=== PATIENT | female | born 1970 | race Caucasian/White ===

== ENCOUNTER 2019-04-11 09:00 | Outpatient (RCR) | payer OTHER, SELFPAY | END 2019-05-04 10:15 | disposition home or self-care (01) | LOC: PT.CARL 09:00 | PROVIDERS: Visit Provider Nurse Practitioner Family | DX: M54.5 Low back pain (principal) | CPT/HCPCS: 97010; 97012; 97014; 97110; 97116; 97140; 97163; 97164; G0283 ==

== ENCOUNTER → 2019-09-14 14:17 | Outpatient (CLI) | payer OTHER, SELFPAY ==
--- NOTE | 2019-09-14 14:22 | US_ITS ---
PROCEDURE: US EXTREMITY RT LIMITED CLINICAL INDICATION: LOWER RT MASS COMPARISON: No exams were available for comparison FINDINGS: Ultrasound is performed of the palpable abnormality in the right lower leg below the knee. There is a rounded area of increased echogenicity which measures 2.5 x 1.7 cm. Within this center aspect of this area there is a small or heterogeneous area of increased echogenicity which measures 1.7 x 1.2 cm. This has a for whirling pattern. Centrally there is a small anechoic area which could be due to small cystic region. IMPRESSION: Heterogeneous somewhat hyperechoic nodule corresponding to the palpable abnormality with some decreased echogenicity centrally and small cystic area in the most central aspect of the nodule. Overall the nodule measures 2.5 x 1.7 cm. This could be due to a lipoma. This does not appear to represent a cyst or abscess. This has a more solid appearance. There is some concern about the heterogeneous echogenicity centrally. At liposarcoma would be included in the differential diagnosis. Consider MRI without and with contrast for further evaluation. Dictated by: Adrián Christiansen MD 09/15/2019 16:29 Electronically signed by Adrián Christiansen MD in [place] 09/15/2019 16:29
== END ==
PROVIDERS: PCP Nurse Practitioner Family; Visit Provider Orthopaedic Surgery Adult Reconstructive Orthopaedic Surgery
DX: R22.41 Localized swelling, mass and lump, right lower limb (principal)
CPT/HCPCS: 76882

== ENCOUNTER → 2019-09-28 09:37 | Outpatient (CLI) | payer OTHER, SELFPAY ==
--- NOTE | 2019-09-28 09:49 | MR_ITS ---
PROCEDURE: MR LOWER LEG RT WO/W CON CLINICAL INDICATION: Localized swelling, mass and lump, right lower limb Palpable abnormality below the right knee. Knee pain COMPARISON: US EXTREMITY RT LIMITED from 09/14/2019 TECHNIQUE: Routine multiplanar multi echo sequences are performed without and the better gadolinium enhancement. FINDINGS: There is a 13 mm area fat signal intensity in the central aspect of the upper leg. This shows some peripheral increase in T2 signal and also demonstrate some mild diffuse enhancement. This is felt to correspond to the abnormality noted ultrasound. This does appear to correspond to the palpable abnormality. No other significant abnormalities are evident. Images are somewhat limited secondary to patient's body habitus and positioning. There is some pretibial edema noted in the left lower leg. No bony abnormalities are apparent. IMPRESSION: Complex fatty lesion within the subcutaneous tissues of the upper leg anteriorly corresponding to the palpable abnormality demonstrating some enhancement. While this may only represent a lipoma with some underlying inflammation, one cannot exclude the possibility of a liposarcoma. Suggest ultrasound-guided fine needle aspiration core biopsy for further evaluation Dictated by: Adrián Christiansen MD 09/28/2019 12:59 Electronically signed by Adrián Christiansen MD in [place] 10/03/2019 12:51
== END ==
PROVIDERS: PCP Nurse Practitioner Family; Visit Provider Orthopaedic Surgery Adult Reconstructive Orthopaedic Surgery
DX: M79.604 Pain in right leg (principal)
CPT/HCPCS: 73720; A9576

== ENCOUNTER → 2019-12-19 15:55 | Outpatient (CLI) | payer MEDICAID, SELFPAY | PROVIDERS: Visit Provider Urology | DX: N39.0 Urinary tract infection, site not specified (principal) | CPT/HCPCS: 87086; 87088; 87186 ==

== ENCOUNTER → 2020-10-20 09:19 | Outpatient (CLI) | payer MEDICAID, SELFPAY ==
[2020-10-20 10:23] LABS: Basophils % 0.3 % (0.1-2.0); Eosinophils # 0.1 K/mm3 (0.0-0.4); Eosinophils % 1.8 % (0.1-12.0); Hematocrit 43.4 % (37.0-47.0); Hemoglobin 14.2 g/dL (12.2-16.2); Lymphocytes # 1.8 K/mm3 (0.7-4.5); Lymphocytes % 24.7 % (10-50); Mean Corpuscular HGB Conc 32.6 g/dL (31.8-35.4); Mean Corpuscular Hemoglobin 32.7 pg (27.0-31.2); Mean Corpuscular Volume 100.3 fl (81-99); Mean Platelet Volume 7.9 fl (7.4-10.4); Monocytes # 0.5 K/mm3 (0.1-1.0); Monocytes % 6.8 % (1.7-9.3); Neutrophils # 4.8 K/mm3 (1.8-7.8); Neutrophils % 66.5 % (37.0-80.0); Platelet Count 242 K/mm3 (142-424); Red Blood Count 4.33 M/mm3 (4.20-5.40); Red Cell Distribution Width 13.1 % (11.5-17.5); White Blood Count 7.3 K/mm3 (4.8-10.8)
[2020-10-20 11:20] LABS: Chloride 106 mmol/L (98-107); Sodium 140 mmol/L (136-145)
[2020-10-20 11:21] LABS: Potassium 4.6 mmoL/L (3.5-5.1)
[2020-10-20 11:24] LABS: Anion Gap 7.6 mEq/L (5-15); Blood Urea Nitrogen 22 mg/dl (7-17); Calcium 9.4 mg/dl (8.4-10.2); Carbon Dioxide 31 mmol/L (22.0-30.0); Estimated Glomerular Filt Rate 67 ml/min (>60); GFR (African American) 81 ML/MIN (>60); Glucose 95 mg/dl (74-100)
[2020-10-20 11:56] LABS: Coronavirus 19 IgG Antibody Negative (Negative); Coronavirus 19 IgM Antibody Negative (Negative)
== END ==
PROVIDERS: Visit Provider Urology
DX: Z01.818 Encounter for other preprocedural examination (principal); Z03.818 Encounter for observation for suspected exposure to other biological agents ruled out; R32 Unspecified urinary incontinence
CPT/HCPCS: 36415; 80048; 85025; 86328

== ENCOUNTER 2020-10-22 06:48 | Day surgery (SDC) | payer MEDICAID, SELFPAY ==
[2020-10-19 13:12] VITALS: BMI 54.3
[2020-10-22] VITALS (11 sets, daily range): BP systolic 102–134; BP diastolic 43–81; PULSE 58–83; RESP 16–18; TEMP 36.3–43; O2SAT 91–98
[2020-10-22 06:40] LABS: HCG Qualitative, Serum Negative (Negative)
--- NOTE | 2020-10-22 09:19 | P.PN_ITS ---
[facility] Anesthesia Checklist - Patient Identification Patient Identification: Arm Band - Structural Data Admitted From: Home Planned Operative Procedure/s: Transobturator Taping Consent for Planned Operative Procedure(s) Verified: Yes Verified Documents: Surgical Consent, History and Physical - NPO Status Verified Time NPO: 00:00 - Additional verifications Anesthesia Reactions: No Hx Blood Transfusions: No Blood Transfusion Reaction: No - Airway Assessment C-Spine Mobility Assessed: Yes (mp3) TMJ Mobility Assessed: Yes Dentition: Good Dentition - Neurological Assessment Level of Consciousness: Awake, Alert - Anesthesia Plan Anesthesia Risk discussed: Yes Anesthesia Plan: Verified ASA Class: III Anesthesia Type: General [facility] History I have reviewed the patient's past medical history: Yes Medical History: Reports:: Gastroesophageal Reflux Disease(GERD), Hyperlipidemia, Hypertension Denies:: Cancer, Diabetes Mellitus Type 1, Diabetes Mellitus Type 2, Internal Pacemaker, MRSA, Seizures *Have you ever received a pneumonia vaccine?: No *Have you received a flu vaccine this season?: Yes Other Medical History: Reports: Arthritis. Denies: Blood Transfusion Reaction Anesthesia experience/problems:: nac Laterality Cases: Bilateral: Carpal Tunnel Release, Tonsillectomy Other Surgeries: Yes: Appendectomy, Colonoscopy, , Sinus Surgery, Tubal Ligation. No: Pacemaker Amputation: No Fractures: No - *Social History Last grade of school completed: High school graduate Smoking Status: Current every day smoker Tobacco Type: cigarettes # Packs/Day (cigarettes): 1 Alcohol Intake: current Alcohol Intake Frequency:: a few times a week Substance Use Type: denies use *Occupational Status:: employed Housing: house Household Members: none *Travel in the last 8 weeks: None Family Hx:: No significant family history
--- NOTE | 2020-10-22 10:12 | P.PN_ITS ---
[facility] Anesthesia Record Part I Intake, IV Amount: 800 Estimated blood loss (mL): 10 Urine output (mL): 0 Blood Pressure: 102/56 SaO2: 91 Pulse Rate: 76 Respiratory Rate: 16 Temperature: 98.5 F Patient is:: Drowsy, Stable Stable to PACU at:: 10:05
--- NOTE | 2020-10-22 11:26 | HMH.ANESII ---
[facility] Anesthesia Record Part II Discharge Time: 10:32 Destination: Surgical Day Care (OP Surgery) PACU nurse assessment reviewed?: Yes Patient Condition:: Good Anesthesia Complications:: None Swallowing reflex intact?: Yes Cyanosis?: No Blood Pressure: 134/71 Pulse Rate: 75 Temperature: 98.5 F Mental Status: Alert & Oriented Pain level:: 0 Nausea and/or vomitting:: None Intake, IV Amount: 0
--- NOTE | 2020-10-22 16:18 | HMH.OPNOTE ---
Date of procedure: 10/22/20 Pre-op Diagnosis:: Stress urinary incontinence Post-op Diagnosis:: Stress urinary incontinence Procedure performed:: Transobturator tape, cystoscopy Surgeon:: Herminio Tavarez MD BRANDING SPECIALIST:: [place] Anesthesia: [facility] Estimated blood loss (mL): 10 Clinical Note:: 50-year-old white female with mixed urinary incontinence. She has been on Myrbetriq with good control of the urge component and now presents for urologic management of the stress component. Operative findings:: Transobturator tape without complication. Cystoscopy revealed no evidence of bladder or urethral injury. Operative note:: Patient taken to the operating room after informed consent was obtained. She was placed on the operating table in the supine position and general anesthesia administered. Preoperative antibiotics and sequential compression devices placed. Tape was used to retract the inner thighs laterally as patient has a history of morbid obesity. She was then prepped and draped in the standard surgical fashion. 16 [place] Karimi catheter was passed into the bladder and the bladder emptied. Weighted vaginal speculum was placed. A marking pen was used to stephenie the planned incision on the inner thighs at the insertion of the adductor longus on the plane horizontal to the clitoris. Local anesthetic was placed into each incision that was marked. The Karimi catheter was clamped and placed onto the abdomen. An Allis clamp was placed onto the tissue about 1 cm below the urethral meatus. We retracted this tissue anteriorly and local anesthetic was placed submucosally in the anterior vaginal wall. A midline incision was then made in the anterior vaginal wall and the periurethral space was dissected with Metzenbaum scissors. My index finger was then placed into the periurethral space and the bladder neck and endopelvic fascia was bluntly dissected underneath the ischio pubic rami. This was done bilaterally. Our Geogoer Obtryx ll kit was used for the transobturator procedure. The trocar was passed through the right thigh incision and around the ischio pubic rami and guided through the vaginal incision by my finger. One end of the transobturator tape was placed onto the trocar and the tape was brought out through the thigh incision. Inspection of the vaginal fornix was performed and there is no evidence of any vaginal defects. Trocar was then placed into the left thigh incision and around the ischio pubic rami and guided on my finger through the vaginal incision. We then removed the Karimi catheter and passed our cystoscope into the bladder and the 70 degree lens was used to inspect the bladder and urethra. There is no evidence of any bladder or urethral trauma or injury. The cystoscope was then removed and the Karimi catheter was replaced and the bladder drained. Karimi then clamped and placed back onto the abdomen. The other end of the transobturator tape was placed onto the trocar the trocar was brought out through the thigh incision. We then snugged up the transobturator tape to the urethra. A curved clamp was placed between the urethra and the tape and the sleeves were removed and the sleeves were removed snugging the tape up to the curved clamp. Clamp and removed from between the tape and the urethra and the tab on the middle of the tape was cut and removed. Irrigation was performed of the wound and the fascial incision then closed with a running 3-0 chromic. The excess tape was cut off at the thigh level. Thigh incisions were closed using Dermabond glue. Sponge needle and instrument count were correct at the end of the case. The Karimi catheter was placed to drainage and patient transferred to the recovery room in stable condition. Condition: stable Disposition: PACU Specimens:: None Complications:: None
== END 2020-10-22 11:03 | disposition home or self-care (01) ==
LOC: OR 06:51
PROVIDERS: PCP Nurse Practitioner Family; Visit Provider Urology
PROC: (CPT 51992; principal; 2020-10-22 08:30)
DX: R15.9 Full incontinence of feces (principal); R32 Unspecified urinary incontinence; Z79.899 Other long term (current) drug therapy; K21.9 Gastro-esophageal reflux disease without esophagitis; E78.5 Hyperlipidemia, unspecified; I10 Essential (primary) hypertension; M19.90 Unspecified osteoarthritis, unspecified site; Z72.0 Tobacco use; Z87.39 Personal history of other diseases of the musculoskeletal system and connective tissue
CPT/HCPCS: 51992; 84703; 96374; C1771; J1956; J2405

== ENCOUNTER 2021-06-04 15:00 | Outpatient (RCR) | payer MEDICAID, SELFPAY | END 2021-07-02 09:33 | disposition home or self-care (01) | LOC: OT 15:00 | PROVIDERS: PCP Nurse Practitioner Family; Visit Provider Orthopaedic Surgery Adult Reconstructive Orthopaedic Surgery | DX: M75.42 Impingement syndrome of left shoulder (principal) | CPT/HCPCS: 97010; 97014; 97035; 97110; 97140; 97164; 97165; 97530; G0283 ==

== ENCOUNTER → 2021-07-05 07:47 | Outpatient (CLI) | payer MEDICAID, SELFPAY ==
--- NOTE | 2021-07-05 07:49 | MR_ITS ---
PROCEDURE INFORMATION: Exam: MR Left Upper Extremity Joint Without Contrast; Shoulder Exam date and time: 07/05/2021 7:49 AM Age: 50 years old Clinical indication: Left; Patient HX: Lt shoulder pain and weakness x2-3 months, injury. ; Additional info: Left shoulder pain and weakness, R/O rotator cuff tear TECHNIQUE: Imaging protocol: MR of the Left upper extremity without contrast. Exam focused on the shoulder. COMPARISON: No relevant prior study is available. FINDINGS: Limitations: Motion artifact and potentially artifact from the patient contacting the side of the imaging bore. Bones and cartilage: The undersurface of the acromion has a normal curvature, consistent with a type II acromion. There is no acute fracture or dislocation. No aggressive bone lesions are present. There is a subchondral cyst or erosion along the anterior aspect of the humeral head measuring 9 mm (series 7/image 10). Joint spaces: A mild effusion involves the glenohumeral joint. No significant degenerative change involves the acromioclavicular joint. Glenoid labrum: Abnormal signal is present along the long axis of the superior labrum suggesting a type II SLAP tear on this non-arthrographic study. Consider MR arthrography for more definitive assessment if this would alter clinical management. Bursae: A trace amount of fluid is present in the subacromial-subdeltoid bursa. Supraspinatus tendon: Low-grade intrasubstance tearing involves the supraspinatus tendon. There is moderate tendinosis of the remainder of the supraspinatus tendon. Infraspinatus tendon: Mild tendinosis involves the infraspinatus tendon. Subscapularis tendon: Mild tendinosis involves the subscapularis tendon. Teres minor tendon: No tear or significant tendinosis involves the teres minor tendon. Tendon of biceps brachii: Severe tendinosis involves the intra-articular portion of the long head of the biceps tendon. Glenohumeral ligaments: Unremarkable. Muscles: Unremarkable. Soft tissues: Unremarkable. IMPRESSION: 1. Supraspinatus tendon low-grade intrasubstance tearing superimposed on moderate tendinosis. 2. Possible type II SLAP tear, which could be more definitively assessed with MR arthrography if this would alter clinical management. 3. Severe tendinosis of the long head of the biceps tendon. 4. Subchondral cyst or erosion measuring 9 mm along the anterior aspect of the humeral head.
== END ==
PROVIDERS: PCP Nurse Practitioner Family; Visit Provider Orthopaedic Surgery Adult Reconstructive Orthopaedic Surgery
DX: M25.512 Pain in left shoulder (principal); R53.1 Weakness
CPT/HCPCS: 73221

== ENCOUNTER → 2021-11-29 13:15 | Outpatient (CLI) | payer MEDICAID, SELFPAY ==
--- NOTE | 2021-11-29 13:16 | US_ITS ---
FINAL REPORT CLINICAL HISTORY: postmenopausal bleeding FINDINGS: Transvaginal Ultrasound Technique: Transvaginal sonographic images of the pelvis were obtained. Findings: The uterus measures 7.2 x 3.8 x 2.7 cm. The endometrium is mildly thickened at 5 mm in a postmenopausal patient. The right ovary is enlarged at 7.3 cm, heterogeneous with hyperechoic and hypoechoic components. No definite calcifications are seen. The left ovary is unremarkable. There is no significant free fluid. IMPRESSION: Mildly thickened endometrium in a postmenopausal patient. Gynecologic evaluation is recommended. 7.3 cm heterogeneous right ovarian mass. Differentials would include dermoid, endometrioma, or neoplasm. Again gynecologic evaluation is recommended. Reviewed, Interpreted and Dictated by Tacos Barton MD Transcribed by Rohan Shah Authenticated by Tacos Barton MD on 11/29/2021 02:50:56 PM [facility]
== END ==
PROVIDERS: PCP Nurse Practitioner Family; Visit Provider Obstetrics & Gynecology
DX: N95.0 Postmenopausal bleeding (principal)
CPT/HCPCS: 76830

== ENCOUNTER 2024-02-16 08:43 | Outpatient (RCR) | payer MEDICAID, SELFPAY | END 2024-02-16 08:45 | disposition home or self-care (01) | LOC: PT 08:43 | PROVIDERS: Visit Provider Nurse Practitioner Family | DX: I89.0 Lymphedema, not elsewhere classified (principal) | CPT/HCPCS: 97163 ==

== ENCOUNTER 2024-04-28 13:50 | Outpatient (POV) | payer MEDICAID, SELFPAY ==
[2024-04-28 14:04] VITALS: BP 164/85; PULSE 81; RESP 18; O2SAT 95; BMI 56.6
--- NOTE | 2024-04-28 14:34 | A.OFFVIS_ITS ---
HPI Data of Consult Patient: new to practice Consult date: 04/28/24 Requesting Physician: Hannah Zhou APRN Primary Care Provider: Eneida Whittaker Consult Narrative Reason for consult: Bilateral knee pain, leg pain, low back pain History of present illness: Ms. Candelaria is a 53 year old female who presents today as a new patient. She is a referral from Eneida Whittaker's office. Today she rates her pain a 10 out of 10. Patient states that she has pain that is chronic in her low back however what really bothers her is her leg pain and that she does have bilateral knee pain. Patient states this been going on for years and progressively worsened over time. Patient does state that her knees are [id number] and that she has had intra-articular injections that initially really did help however over time became less effective and that she did try gel injections however there did not seem to work well. Patient does believe a lot of her pain is related to her weight and that she does have chronic lymphedema. Patient does state that she was sent for referral to the lymphedema clinic here in [place] and that she is going to them coming up. Patient also states she has a chronic history of fibromyalgia for the last 4 years. Patient states that the pain is constant and worse with increased standing or walking. She describes it as a aching, throbbing sensation and does interfere with the simplest activities. Patient does use a walker to help take some pressure off her legs. Patient denies any prior back injections or surgery. She is prescribed Vyvanse and gabapentin from her PCP. Her Axel has been reviewed and is appropriate. CC: Hannah Zhou APRN [facility] Disclaimer: The information contained in this section may have been updated after the patient was seen, as this information can be updated by other users. Medical History (Updated 04/28/24 @ 14:43 by Hannah Zhou APRN) Carpal tunnel syndrome Barretts esophagus Chronic post-traumatic stress disorder (PTSD) Alcohol abuse Anxiety GERD (gastroesophageal reflux disease) HTN (hypertension) Hypothyroidism Seizures Depression Surgical History (Updated 04/28/24 @ 14:08 by Laila Barry, RN) Hx of total knee arthroplasty H/O section H/O colonoscopy History of tonsillectomy and adenoidectomy S/P laparoscopic sleeve gastrectomy Family History (Updated 04/28/24 @ 14:07 by Laila Barry RN) Other CHF (congestive heart failure) Cancer Diabetes Ischemic heart disease Social History (Updated 04/28/24 @ 14:31 by Laila Barry RN) Smoking Status: Current every day smoker tobacco type: cigarettes packs per day: 1 alcohol intake: never substance use type: denies use current occupational status: unemployed Travel in the last 8 weeks: None household members: none housing: house current occupation: [employer] caffeine: Yes Review of Systems Review of Systems Review of systems:: pertinent systems reviewed and negative unless documented below Review of systems (narrative): Review of Systems: General: No recent weight changes, no fever, no sleep disturbances Respiratory: No cough, no shortness of air, no recurring pulmonary infections Cardiovascular/peripheral vascular: No chest pain, no palpitations, no edema, no shortness of breath Gastrointestinal: No new onset incontinence, normal bowel movements reported Genitourinary: No new onset incontinence Musculoskeletal: Low back pain, bilateral knee pain, bilateral leg pain Psychiatric: [Normal mood/affect] Neurological: [Denies weakness in extremities], [denies balance issues] Meds Home Medications and Allergies Home Medications Medication Instructions Recorded Confirmed Type gabapentin 400 mg capsule 400 mg PO TID Pain 12/19/19 04/28/24 History metoprolol succinate 25 mg 25 mg PO Q12H High blood pressure 12/19/19 04/28/24 History tablet,extended release 24 hr omeprazole 40 mg capsule,delayed 40 mg PO DAILY GERD 12/19/19 04/28/24 History release ranitidine HCl 150 mg capsule 150 mg PO DAILY GERD 12/19/19 04/28/24 History aripiprazole 5 mg tablet 5 mg PO DAILY sleep 10/19/20 04/28/24 History citalopram 40 mg tablet 40 mg PO DAILY Depression 10/19/20 04/28/24 History duloxetine 60 mg capsule,delayed 60 mg PO DAILY Depression 10/19/20 04/28/24 History release hydrochlorothiazide 25 mg tablet 25 mg PO DAILY Edema 10/19/20 04/28/24 History mirabegron 25 mg tablet,extended 25 mg PO DAILY incontinence 10/19/20 04/28/24 History release 24 hr albuterol sulfate 90 mcg/actuation 90 mcg inhalation DIRECTED 11/26/21 04/28/24 History aerosol inhaler (ProAir HFA) Breathing Problems levothyroxine 175 mcg tablet 175 mcg PO DAILY 11/26/21 04/28/24 History (Euthyrox) oxybutynin chloride 10 mg 10 ea PO DAILY BLADDER 11/26/21 04/28/24 History tablet,extended release 24 hr New Prescriptions to Start Prescriptions: Allergies Allergy/AdvReac Type Severity Reaction Status Date / Time penicillin G Allergy Unknown UNKNOWN- Verified 12/10/21 14:49 WHEN A CHILD Objective Narrative: Physical Exam: General: Alert and oriented x3, no acute distress, pleasant and cooperative Lungs: Respirations even and unlabored, symmetrical chest expansion Eyes: PERRL Musculoskeletal: Flexion and extension of lumbar [spine] somewhat guarded secondary to pain, [antalgic gait noted] Neurological: Speech clear, no gross sensory deficit Skin: There is a open seeping area along patient's right lower leg, patient does have a bandage over it however there is drainage noted Additional findings Additional findings: FINDINGS: There is a 13 mm area fat signal intensity in the central aspect of the upper leg. This shows some peripheral increase in T2 signal and also demonstrate some mild diffuse enhancement. This is felt to correspond to the abnormality noted ultrasound. This does appear to correspond to the palpable abnormality. No other significant abnormalities are evident. Images are somewhat limited secondary to patient's body habitus and positioning. There is some pretibial edema noted in the left lower leg. No bony abnormalities are apparent. IMPRESSION: Complex fatty lesion within the subcutaneous tissues of the upper leg anteriorly corresponding to the palpable abnormality demonstrating some enhancement. While this may only represent a lipoma with some underlying inflammation, one cannot exclude the possibility of a liposarcoma. Suggest ultrasound-guided fine needle aspiration core biopsy for further evaluation Dictated by: Adrián Christiansen MD 09/28/2019 12:59 Electronically signed by Adrián Christiansen MD in [place] 10/03/2019 12:51 Assessment and Plan *Assessment and plan (1) Low back pain: Status: Acute Qualifiers: Chronicity: chronic Back pain laterality: bilateral Sciatica presence: without sciatica Qualified Code(s): M54.50 - Low back pain, unspecified; G89.29 - Other chronic pain Category: Medical Code(s): M54.50 - Low back pain, unspecified (2) Lumbar radiculopathy: Status: Acute Category: Medical Code(s): M54.16 - Radiculopathy, lumbar region (3) Chronic acquired lymphedema: Status: Acute Category: Medical Code(s): I89.0 - Lymphedema, not elsewhere classified (4) Bilateral knee pain: Status: Acute Qualifiers: Chronicity: chronic Qualified Code(s): M25.561 - Pain in right knee; M25.562 - Pain in left knee; G89.29 - Other chronic pain Category: Medical Code(s): M25.561 - Pain in right knee; M25.562 - Pain in left knee Plan Patient was counseled that we are primarily in injection therapy clinic and working on means try some injection therapy for her chronic low back pain and see if it does help improve some of her overall leg symptoms. I will also order the patient a compounded cream. Patient is scheduled to see a lymphedema clinic coming up. After discussion with the patient we will wait and see how the cream helps along with her lymphedema clinic consult. Patient was counseled not to apply the cream to any open areas. Patient acknowledges understanding and agrees with this plan of care. Patient will return to clinic in 1 month for reevaluation of symptoms and plan of care. Patient has been instructed to contact the clinic with any concerns before the next appointment. Dr. Hager has reviewed this note and agrees with this plan of care. This note was dictated using voice recognition software and make contain errors or omissions.
== END 2024-04-28 23:59 | disposition home or self-care (01) ==
LOC: SC.PAIN 13:50
PROVIDERS: PCP Nurse Practitioner Family; Visit Provider Nurse Practitioner Family
DX: G89.29 Other chronic pain (principal); M54.50 Low back pain, unspecified; M54.16 Radiculopathy, lumbar region; I89.0 Lymphedema, not elsewhere classified
CPT/HCPCS: 99202; G0463

== ENCOUNTER 2024-06-14 08:00 | Outpatient (RCR) | payer MEDICAID, SELFPAY | END 2024-06-14 08:05 | disposition home or self-care (01) | LOC: PT 08:00 | PROVIDERS: Visit Provider Nurse Practitioner Family | DX: I89.0 Lymphedema, not elsewhere classified (principal) | CPT/HCPCS: 97140; 97163; 97164; 97760 ==

== ENCOUNTER 2024-08-05 09:00 | Outpatient (RCR) | payer MEDICAID, SELFPAY | END 2024-08-05 23:59 | disposition home or self-care (01) | LOC: PT 09:00 | PROVIDERS: Visit Provider Nurse Practitioner Family | DX: R60.9 Edema, unspecified (principal); S81.802S Unspecified open wound, left lower leg, sequela; L53.9 Erythematous condition, unspecified; L85.9 Epidermal thickening, unspecified | CPT/HCPCS: 97140; 97163; 97597; 97598 ==

== ENCOUNTER 2025-04-26 08:00 | Outpatient (RCR) | payer MEDICARE, SELFPAY | END 2025-04-26 23:59 | disposition home or self-care (01) | LOC: PT 08:00 | PROVIDERS: PCP Nurse Practitioner Family; Visit Provider Nurse Practitioner Family | DX: I89.0 Lymphedema, not elsewhere classified (principal) | CPT/HCPCS: 97110; 97140; 97163 ==

== ENCOUNTER 2025-05-11 08:00 | Outpatient (RCR) | payer MEDICARE, SELFPAY | END 2025-05-11 23:59 | disposition home or self-care (01) | LOC: PT 08:00 | PROVIDERS: PCP Nurse Practitioner Family; Visit Provider Nurse Practitioner Family | DX: I89.0 Lymphedema, not elsewhere classified (principal) | CPT/HCPCS: 97140 ==

== ENCOUNTER 2025-10-07 19:45 | Emergency (ER) | payer MEDICARE, SELFPAY ==
--- OUTSIDE RECORDS SUMMARY | 2025-09-25 06:00 | XMS_ITS | Continuity of Care Document ---
Author Organization [facility] Veruta mSeller Phone Care Team Providers Care Combined Rail Operator Name Role Phone CJ MAYO Admitting CJ MAYO Primary Attending CJ MAYO Primary Care CJ MAYO Unavailable ALLERGIES AND ADVERSE REACTIONS ALLERGIES AND ADVERSE REACTIONS Code System Allergy Substance Adverse Reaction Date Reaction (Severity) Comment Status Reported By Updated [place] [id number] SNOMED CT PENICILLINS Adverse reaction to substance Not Specified active [id number] on January 02, 2024 4:17:49 AM [facility] [id number] SNOMED CT PENICILLINS Adverse reaction to substance Not Specified active [id number] on January 02, 2024 4:17:49 AM [facility] FAMILY HISTORY RELATION: Father Status: Cause of : Unknown Age at : Unknown SNOMED-CT Diagnosis Age At Onset Information not available RELATION: Mother Status: Cause of : Unknown Age at : Unknown SNOMED-CT Diagnosis Age At Onset Information not available RELATION: Sister Status: Cause of : Unknown Age at : Unknown SNOMED-CT Diagnosis Age At Onset [id number] Malignant tumor of lung MEDICATIONS HOME MEDICATIONS Status RXNORM NDC Medication Dose Route Frequency Dates Comments Reported By Updated By Drug Treatment Unknown DISCHARGE MEDICATIONS Status RXNORM NDC Medication Dose Route Frequency Dates Dis pense Data Comments Physician Updated By No Discharge Medication Info rmation Available INPATIENT MEDICATIONS Status RXNORM NDC Medication Dose Route Frequency Rat e Quantity Dates Indication Dispense Data Comments Physician Updated By No Inpatient Medication Info rmation Available SOCIAL HISTORY SOCIAL HISTORY - Smoking Status SNOMED-CT Social History Element Description Effective Dates Offered Cessation Comment Updated By [id number] Historical Tobacco smoking status Never Smoked [id number] on January 02, 2024 2:02:24 PM [facility] [id number] Historical Tobacco smoking status Current Every Day Smoker Yes [id number] on April 28, 2023 7:57:25 PM [facility] SOCIAL HISTORY - Gender Sex: Female SOCIAL HISTORY - Status : status i nformation is not available Intention in Next Year: intention information is not available SOCIAL HISTORY - Assessments Code System Description Status Date Value of Assessment Updated By Comment Assessment Information is no t available SOCIAL HISTORY - [place] Affiliation [place] information is not av ailable SOCIAL HISTORY - Legal Sex Legal Sex information is not available SOCIAL HISTORY - Sexual Behavior Sexual Orientation Gender Identity SNOMED-CT Description SNO MED -CT Description Activity Level No of Partners Partner Type UpdatedBy Information is not available SOCIAL HISTORY - Occupation Occupation information is no t available HEALTH CONCERNS Problems Concern Status Health Concern problem infor mation not available. Smoking Status Status Years Used Consumed packs p er day Health Concern smoking histo ry information not available. Family History Concern Status Health Concern family histor y information not available. ENCOUNTERS ENCOUNTER INFORMATION Reason for Visit SCREENING MAMMOGRAM Admission September 22, 2025 1:27:[address] [address] Discharge September 23, 2025 1:27:00 AM [facility] DISCHARGED TO HOME OR SELF CARE ENCOUNTER DIAGNOSES Notes information is not linda ilable. Code System Diagnosis Onset Date Diagnosis information is not available. ABSTRACT DIAGNOSES Code System Diagnosis Updated By Abatement Date Z12.31 ICD10 ENCOUNTER FOR SC REENING MAMMOGRAM FOR MALIGNANT NEOPLASM OF BREAST [id number] on September 11, 2025 5:31:46 PM [facility] Z12.31 ICD10 ENCOUNTER FOR SC REENING MAMMOGRAM FOR MALIGNANT NEOPLASM OF BREAST [id number] on September 25, 2025 10:59:49 AM [facility] CARE TEAM Care Combined Rail Operator Role CJ MAYO Admitting CJ MAYO Primary Attending CJ MAYO Primary Care CJ MAYO Referring CARE TEAM CARE food service supervisor Role on Team Location Telecom Status Start Date End Desmond e Updated By GAEL PAZ PCP normal September 11, 2025 5:31:46 PM [facility] September 23, 2025 1:27:00 AM [facility] [id number] on September 11, 2025 5:31:46 PM [facility] GAEL PAZ Referring normal September 11, 2025 5:31:46 PM [facility] September 23, 2025 1:27:00 AM [facility] [id number] on September 11, 2025 5:31:46 PM [facility] GAEL PAZ Attending normal September 11, 2025 5:31:46 PM [facility] September 23, 2025 1:27:00 AM [facility] [id number] on September 11, 2025 5:31:46 PM [facility] GAEL PAZ Admitting normal September 11, 2025 5:31:46 PM [facility] September 23, 2025 1:27:00 AM [facility] [id number] on September 11, 2025 5:31:46 PM [facility]
[2025-10-07] VITALS (8 sets, daily range): BP systolic 156–183; BP diastolic 90–102; PULSE 74–83; RESP 14–24; TEMP 37; O2SAT 95–98; BMI 57.8
--- OUTSIDE RECORDS SUMMARY | 2025-10-07 00:21 | XMS_ITS | Continuity of Care Document ---
Author Organization [facility] Phone Care Team Providers Care Technical Support Professional Name Role Phone MARCIA ADHIKARI Admitting MARCIA ADHIKARI Unavailable MARCIA ADHIKARI Primary Attending CJ MAYO Primary Care ALLERGIES AND ADVERSE REACTIONS ALLERGIES AND ADVERSE REACTIONS Code System Allergy Substance Adverse Reaction Date Reaction (Severity) Comment Status Reported By Updated By [id number] RXNorm Penicillin Adverse reaction to substance shaking and fainting active Patient [id number] on July 16, 2022 5:28:23 PM [facility] FAMILY HISTORY RELATION: Father Status: Cause of : Unknown Age at : 20's SNOMED-CT Diagnosis Age At Onset Information not available RELATION: Mother Status: LIVING SNOMED-CT Diagnosis Age At Onset [id number] Heart disease RELATION: Mother Status: Cause of : Primary malignant neoplasm of lung Age at : Unknown SNOMED-CT Diagnosis Age At Onset Information not available MEDICATIONS HOME MEDICATIONS Status RXNORM NDC Medication [...] Effective Dates Offered Cessation Comment Updated By [id number] Historical Tobacco smoking status Never Smoked [id number] on January 21, 2024 2:19:43 PM [facility] [id number] Historical Tobacco smoking status Former Smoker [id number] on January 04, 2024 9:07:33 PM [facility] [id number] Historical Tobacco smoking status Current Every Day Smoker [id number] on September 17, 2020 2:59:37 PM [facility] SOCIAL HISTORY - Gender Sex: Female SOCIAL HISTORY - Status : status i nformation is not available Intention in Next Year: intention information is not available SOCIAL HISTORY - Assessments Code System Description Status Date Value of Assessment Updated By Comment Assessment Information is no t available SOCIAL HISTORY - [place] Affiliation [place] information is not av ailable SOCIAL HISTORY - Legal Sex Legal Sex : Female (finding) SOCIAL HISTORY - Sexual Behavior Sexual Orientation Gender Identity SNOMED-CT Description SNO MED -CT Description Activity Level No of Partners Partner Type UpdatedBy Information is not available SOCIAL HISTORY - Occupation Occupation information is no t available ENCOUNTERS ENCOUNTER INFORMATION Reason for Visit OV Admission October 06, 2025 2:17:[address] [address] Discharge October 06, 2025 2:17:00 PM [facility] DISCHARGED TO HOME OR SELF CARE ENCOUNTER DIAGNOSES Notes information is not linda ilable. Code System Diagnosis Onset Date Diagnosis information is not available. ABSTRACT DIAGNOSES Code System Diagnosis Updated By Abatement Date Abstract Diagnosis informati on is not available. CARE TEAM Care Technical Support Professional Role MARCIA ADHIKARI Admitting MARCIA ADHIKARI Referring MARCIA ADHIKARI Primary Attending CJ MAYO Primary Care CARE TEAM CARE vp care management Role on Team Location Telecom Status Start Date End Desmond e Updated By GAEL CORONA PCP [address] [place], [address] normal October 06, 2025 5:00:00 AM [facility] October 06, 2025 2:17:00 PM [facility] [id number] on October 06, 2025 2:18:18 PM [facility] ONOFRE SAMUELOD K PHY Referring [address] [place] [address], [id number] normal October 06, 2025 5:00:00 AM [facility] October 06, 2025 2:17:00 PM [facility] [id number] on October 06, 2025 2:18:18 PM [facility] ONOFRE SAMUELOD K PHY Attending [address] [place] [address], [address] normal October 06, 2025 5:00:00 AM [facility] October 06, 2025 2:17:00 PM [facility] [id number] on October 06, 2025 2:18:18 PM [facility] ONOFRE Gregory PHY Admitting [address] [address], [place], [address] normal October 06, 2025 5:00:00 AM [facility] October 06, 2025 2:17:00 PM [facility] [id number] on October 06, 2025 2:18:18 PM [facility] INSURANCE PROVIDERS INSURANCE PROVIDER Coverage Status - Effective Date Coverage Type Payor Plan Order Relationship To Subscriber Insurance Plan No Insurance Plan 2024-11-02 PRIMARY 18 [phone] [facility]
--- OUTSIDE RECORDS SUMMARY | 2025-10-07 19:51 | XMS_ITS | Clinical Summary ---
Author Organization [facility] Address [address] [place] [address] Care Team Providers Care Wagon Washer Name Role Phone Eneida Whittaker JEY Primary Care Provider [phone] Allergies Active Allergy Reactions Criticality Noted Date Comments Penicillins Other (See Comments) 01/08/2023 Patient is unknown of reaction to medication. Medications Ventolin HFA 108 (90 Base) MCG/ACT inhaler Inhale See Admin Instructions . Inhale 2 puffs by mouth every 4 to 6 hours as needed 11/22/2022 Active ARIPiprazole (ABILIFY) 10 MG tablet Take 1 tablet by mouth Daily. 01/04/2023 Active citalopram (CeleXA) 40 MG tablet Take 1 tablet by mouth Daily. 01/04/2023 Active DULoxetine (CYMBALTA) 60 MG capsule Take 1 capsule by mouth Daily. 12/17/2022 Active Enoxaparin Sodium (LOVENOX) 60 MG/0.6ML solution prefilled syringe syringe 10/09/2022 Act sunil gabapentin (NEURONTIN) 400 MG capsule Take 1 capsule by mouth 3 (Three) Times a Day. 12/11/2022 Active hydroCHLOROthia zide (HYDRODIURIL) 25 MG tablet Take 1 tablet by mouth Daily. 01/02/2023 Active levothyroxine (SYNTHROID, LEVOTHROID) 175 MCG tablet Take 1 tablet by mouth Daily. 12/19/2022 Active metoprolol tartrate (LOPRESSOR) 25 MG tablet Take 1 tablet by mouth 2 (Two) Times a Day. 01/04/2023 Active omeprazole (priLOSEC) 40 MG capsule Take 1 capsule by mouth 2 (Two) Times a Day. 12/24/2022 Active Active Problems Problem Noted Date Diagnosed Date Morbid obesity with BMI of 50.0-59.9, adult 07/2023 Assessment & Plan (01/08/2023 1:07 PM EST): She has lost 27 pounds since her last visit. And she is praised for her weight loss today. She reports she is continuing on her journey of weight loss. She continues to follow-up with bariatrics. KRISTINA (obstructive sleep apnea) 01/08/2023 Assessment & Plan (01/08/2023 1:05 PM EST): She has a known history of obstructive sleep apnea. Her baseline AHI is 6 that is mild. But her baseline in rem sleep is 30 and this is severe. She is currently on BiPAP therapy. Her download is reviewed with good control and good compliance. She is benefiting from PAP therapy and we plan to continue PAP therapy. Supply order to the DME of her choice. She is encouraged to increase her use of her BiPAP and sleep more than 7 hours. We will follow-up in 6 months for further evaluation. Family History Medical History Relation Name Comments Lung cancer Sister Relation Name Status Comments Brother Alive Father (Age 25) Mother (Age 65) Sister (Age 50) Social History Tobacco Use Types Packs/Day Years Used Date Smoking Tobacco: Former Cigarettes 1 33 0 05/20/1987 - 05/20/2020 Tobacco Cessation:Counseling Given: Not Answered Alcohol Use Standard Drinks/Week Comments Not Currently 0 (1 standard drink = 0.6 oz pur e alcohol) Abuse Screen Answer Date Recorded Unsafe at Home or Work/School Not on file Feels Threatened by Someone? Not on file Does Anyone Keep You from Co ntacting Others or Doint Things Outside the Home? Not on file 08/14/2023 Physical Sign of Abuse Present Not on file 1 Housing Stability Answer Date Recorded Current Living Arrangements Not on file 08/02 Potentially Unsafe Housing Conditions Not on timbo e 08/14/2023 Family and Community Support Answer Desmond e Recorded Help with Day-to-Day Activities Not on file 08/14/2023 Lonely or Isolated Not on file 08/14/2023 Employment Answer Date Recorded Do you want help finding or keeping work or a francis b? Not on file 08/14/2023 Disabilities Answer Date Recorded Concentrating, Remembering, or Making Decisions Difficulty Not on file 08/14/2023 Doing Errands Independently Difficulty Not on fi le 08/14/2023 Education Answer Date Recorded Help with school or training? Not on file Preferred Language Not on file 08/14/2023 Comments Unknown Sex and Gender Information Value Date Recorded Sex Assigned at Not on file Legal Sex Female 2:18 PM EST Gender Identity Not on file Sexual Orientation Not on file Last Filed Vital Signs Vital Sign Reading Time Taken Comments Blood Pressure 128/72 01/08/2023 12:04 PM EST Pulse 90 01/08/2023 12:04 PM EST Temperature - - Respiratory Rate - - Oxygen Saturation 93% 01/08/2023 12:04 PM EST Inhaled Oxygen Concentration - - Weight 144 kg (317 lb) 01/08/2023 12:04 PM EST Height 167.6 cm (5' 6 ) 01/08/2023 12:04 PM EST Body Mass Index 51.17 01/08/2023 12:04 PM EST Plan of Treatment Health Maintenance Due Date Last Done Comments Annual Gynecologic Pelvic and Breast Exam 1972 TDAP/TD VACCINES (1 - Tdap) 1991 MAMMOGRAM 2012 COLOGUARD 2017 COLON CANCER SCREENING 5 YEAR SIGMOIDOSCOPY 2017 COLONOSCOPY 2017 COLORECTAL CANCER SCREENING 2017 CT COLONOGRAPHY 2017 FECAL OCCULT BLOOD TEST 2017 FIT Testing (1 year) 2017 Pneumococcal Vaccine 50+ (1 of 1 - PCV) 2022 ZOSTER VACCINE (1 of 2) 2022 ANNUAL PHYSICAL 01/06/2023 HEPATITIS C SCREENING 01/06/2023 INFLUENZA VACCINE 06/02/2025 Insurance [employer] MEDICAID [place] Care Teams Wagon Washer Relationship Specialty Start Date End Date Eneida Whittaker APRN [address] [place] [address] PCP - General Nurse Practitioner 01/08/23
--- OUTSIDE RECORDS SUMMARY | 2025-10-07 19:51 | XMS_ITS | Encounter Summary ---
Author Organization Healthcare Address [address] [place] [address] Care Team Providers Care Communications Systems Engineer Name Role Phone Eneida Whittaker CITY DISPATCH SUPERVISOR Primary Care Provider [phone] Encounter Details Date Type Department Care Team (Late st Contact Info) Description 05/08/2023 Community [facility] Community Practice [address] [place] [address] Eneida Whittaker APRN [address] [place], [place] [id number] Cellulitis of left lower extremity (Primary Dx) Social History Tobacco Use Types Packs/Day Years Used Date Smoking Tobacco: Passive Smo ke Exposure - Never Smoker Comments Unknown Sex and Gender Information Value Date Recorded Sex Assigned at Female 05/08/2023 2:14 PM EDT Legal Sex Female 8:03 PM EDT Gender Identity Female 05/08/2023 2:14 PM EDT Sexual Orientation Straight 05/20/2023 3: 39 PM EDT documented as of this encounter Plan of Treatment Not on file documented as of this encounter Visit Diagnoses Diagnosis Cellulitis of left lower extremity- Primary documented in this encounter Additional Health Concerns Infection Onset Date Last Indicated Resolved Time C. difficile Rule-Out 05/19/2023 05/19/20232022 1:29 PM EDT Gastrointestinal Rule-Out 05/19/2023 05/19/2023 2:05 PM EDT C. difficile 05/19/2023 05/19/2023 documented as of this encounter Care Teams Communications Systems Engineer Relationship Specialty Start Date End Date Eneida Whittaker APRN [address] [place] [address] PCP - General 03/15/21 documented as of this encounter
--- OUTSIDE RECORDS SUMMARY | 2025-10-07 19:51 | XMS_ITS | Encounter Summary ---
Author Organization [facility] Address [address] [place] [address] Care Team Providers Care Patent Leather Sorter Name Role Phone Eneida Whittaker CATTLE TRADER Primary Care Provider [phone] Encounter Details Date Type Department Care Team (Late st Contact Info) Description 06/29/2023 [facility] Community [facility] [address] [place] [address] Eneida Whittaker, CATTLE TRADER [address] [place], [place] [id number] Laceration without foreign body, left foot, sequela (Primary Dx) Social History Tobacco Use Types Packs/Day Years Used Date Smoking Tobacco: Every Day Cigarettes Passive Smoke Exposure: Yes PHQ-2 Answer Date Recorded Patient Health Questionnaire-2 Score 0 07/01/2023 CAGE ASSESSMENT Answer Date Recorded Cage unable to access Not on file 05/18/2023 Cage max number of drinks Not on file 2022 Cage Beverages a week Not on file 05/18/2023 Have you ever felt you should CUT down on your d rinking? 0 05/18/2023 Have you been ANNOYED by people criticizing your drinking? 0 05/18/2023 Have you felt GUILTY about your drinking? 0 05/18/2023 Have you had a drink first t rodrick in the morning (EYE-BLUE LINE HANGER) to steady your nerves or to get rid of a hangover? 0 05/18/2023 CAGE Questionnaire Score 0 023 Comments No Sex and Gender Information Value Date Recorded Sex Assigned at Female 05/08/2023 2:14 PM EDT Legal Sex Female 8:03 PM EDT Gender Identity Female 05/08/2023 2:14 PM EDT Sexual Orientation Straight 05/20/2023 3: 39 PM EDT documented as of this encounter Functional Status * Over the past 2 weeks, how often have you been bothered by any of the following problems? Question Answer Date of Assessment Author Little interest or pleasure in doing things Not at all 07/01/2023 9:02 AM EDT Laya Gillespie RN Feeling down, depressed, or hopeless Not at all 07/01/2023 9:02 AM EDT Laya Gillespie RN Patient Health Questionnaire -2 Score 0 07/01/2023 9:02 AM EDT Laya Gillespie RN documented as of this encounter Plan of Treatment Not on file documented as of this encounter Visit Diagnoses Diagnosis Laceration without foreign body, left foot, sequela- Primary documented in this encounter Additional Health Concerns Infection Onset Date Last Indicated Resolved Time C. difficile 05/19/2023 05/19/2023 documented as of this encounter Care Teams Patent Leather Sorter Relationship Specialty Start Date End Date Eneida Whittaker, CATTLE TRADER [address] [place] [address] PCP - General 03/15/21 documented as of this encounter
--- OUTSIDE RECORDS SUMMARY | 2025-10-07 19:52 | XMS_ITS | Clinical Summary ---
Author Organization [facility] Address [address] [place] [address] Care Team Providers Care Student Records Specialist Name Role Phone Eneida Whittaker JEY Primary Care Provider [phone] Allergies Active Allergy Reactions Criticality Noted Date Comments Penicillins Rash Low 05/17/2023 Medications albuterol 108 (90 Base) MCG/ACT inhaler Inhale 2 puffs every 4 (four) hours if needed for wheezing or shortness of breath. Active ARIPiprazole (Abilify) 10 MG tablet Take 1 tablet (10 mg) by mouth 1 (one) time each day. Active metoprolol tartrate (Lopressor) 25 MG tablet Take 1 tablet (25 mg) by mouth 2 (two) times a day. Active DULoxetine (Cymbalta) [address] capsule Take 1 capsule (60 mg) by mouth 1 (one) time each day. Do not crush or chew. Active levothyroxine (Synthroid, Levoxyl) 200 MCG tablet Take 1 tablet (200 mcg) by mouth 1 (one) time each day before breakfast. Active hydroCHLOROthia zide (HYDRODiuril) 25 MG tablet Take 1 tablet (25 mg) by mouth 1 (one) time each day. Active citalopram (CeleXA) 40 MG tablet Take 1 tablet (40 mg) by mouth 1 (one) time each day. Active omeprazole (PriLOSEC) [address] capsule Take 1 capsule (40 mg) by mouth 1 (one) time each day. Do not crush or chew. Active biotin 5 MG capsule Take 1 capsule (5 mg) by mouth 1 (one) time each day. Active gabapentin (Neurontin) 400 MG capsule Take 1 capsule (400 mg) by mouth 3 (three) times a day. Active buPROPion XL (Wellbutrin XL) 300 MG 24 hr tablet 5 Active Active Problems Problem Noted Date Diagnosed Date Wound of left leg 07/01/2023 Tobacco abuse disorder 07/01/2023 HTN (hypertension) 05/18/2023 Lymphedema 05/18/2023 GERD (gastroesophageal reflux disease) Fibromyalgia 05/18/2023 Hypothyroidism 05/18/2023 Morbid obesity with BMI of 50.0-59.9, adult 05/02 Left leg cellulitis 05/17/2023 KRISTINA (obstructive sleep apnea) 01/08/2023 Overview (07/01/2023): Last Assessment & Plan: She has a known history of obstructive [...] follow-up in 6 months for further evaluation. Resolved Problems Problem Noted Date Diagnosed Date Resolved Date Cellulitis 05/17/2023 07/23/2025 Morbid obesity 06/20/2015 07/01/2023 07/01/2023 Encounters Date Type Department Care Team Description 08/07/2025 Telephone [facility] [address] [facility] [address]th Floor [address] [place] [id number] Ever Gray MD [facility] Clinical Concern/Question from Last 3 Months Family History Medical History Relation Name Comments Lung cancer Mother Family history of lung cancer Stomach cancer Mother FH: stomach c ancer Stroke Other 1 Coronary artery disease Other 2 Diabetes Other 3 Hypertension Other 4 Lung cancer Sister Family history of lung cancer Relation Name Status Comments Mother Other 1 Other 2 Other 3 Other 4 Sister Social History Tobacco Use Types Packs/Day Years Used Date Smoking Tobacco: Former Cigarettes 1 35 1 - 08/29/2023 Passive Smoke Exposure: Past Smokeless Tobacco: Never Tobacco Cessation:Counseling Given: No Comments:Pt is interested in quieting tried the nicotine patches. 09/02/2023 Pt reports she has stopped smoking 4 days ago. Alcohol Use Standard Drinks/Week Comments Not Currently 0 (1 standard drink = 0.6 oz pur e alcohol) PHQ-2 Answer Date Recorded Patient Health Questionnaire-2 Score 0 07/29/2023 CAGE ASSESSMENT Answer Date Recorded Cage unable [...] drink first t rodrick in the morning (EYE-PHARMACEUTICAL SALES REPRESENTATIVE) to steady your nerves or to get rid of a hangover? 0 05/18/2023 CAGE Questionnaire Score 0 023 PHQ-2A Answer Date Recorded Patient Health Questionnaire-2 Score 0 07/29/2023 Comments No Sex and Gender Information Value Date Recorded Sex Assigned at Female 05/08/2023 2:14 PM EDT Legal Sex Female 8:03 PM EDT Gender Identity Female 05/08/2023 2:14 PM EDT Sexual Orientation Straight 05/20/2023 3: 39 PM EDT Last Filed Vital Signs Vital Sign Reading Time Taken Comments Blood Pressure 117/69 11/04/2023 8:59 AM EST Pulse 66 11/04/2023 8:59 AM EST Temperature 36.3 C (97.4 F) 11/04/2023 8:59 AM EST Respiratory Rate 16 11/04/2023 8:59 AM EST Oxygen Saturation 94% 05/22/2023 8:34 AM EDT Inhaled Oxygen Concentration - - Weight 142 kg (314 lb) 11/04/2023 8:59 AM EST Height 162.5 cm (5' 3.98 ) 11/04/2023 8:59 AM ES T Body Mass Index 53.93 11/04/2023 8:59 AM EST Plan of Treatment Health Maintenance Due Date Last Done Comments [facility]-Medicare Annual Wellness (AWV) 1970 [facility]-Infant/Child/Adol SDOH Screenings 1972 [facility]- SDOH Screenings 1990 [facility]-Adult SDOH Screenings 1990 [facility]-DTaP,Tdap,and Td Vaccines (1 - Tdap) 1991 [facility]-Hepatitis B Vaccines (1 of 3 - 19+ 3-dose series) 1991 [facility]-Pap Smear 12/25/1997 12/25/1994 [facility]-Cervical Cancer Screening 2002 [facility]-HPV/Cotest 2002 12/25/1994 CT Colonography 2017 Colonoscopy 2017 FIT-DNA 2017 FIT 2017 FOBT 2017 Sigmoidoscopy 2017 [facility]-Colorectal Cancer Screening 2017 EDF-KVGYV-70 Vaccine (3 - Pfizer risk series) 08/27/2021 07/30/2021, 07/02/2021 Lung Cancer Screening Shared Decision Making 2022 [facility]-Breast Cancer Screening 2022 [facility]-Lung Cancer Screening 2022 [facility]-Pneumococcal Vaccine: 50+ Years (1 of 1 - PCV) 2022 [facility]-Zoster Vaccines (1 of 2) 2022 [facility]-Depression Screening 07/29/2024 07/29/2023 [facility]-Influenza Vaccine (#1) 07/03/202508/11, 09/26/2022, 10/04/2021, Additional history exists [facility]-HIV Screening Completed 05/17/2023 [facility]-Hepatitis C Screening Completed 05/17/2023 [facility]-Obesity Intervention Completed 024, 09/30/2023, 09/02/2023, Additional history exists HPV Vaccines Aged Out No longer eligi ble based on patient's age to complete this topic [facility]-HIB Vaccines Aged Out No longer e ligible based on patient's age to complete this topic [facility]-Hepatitis A Vaccines Aged Out No longer eligible based on patient's age to complete this topic [facility]-IPV Vaccines Aged Out No longer e ligible based on patient's age to complete this topic [facility]-Rotavirus Vaccines Aged Out No lo nger eligible based on patient's age to complete this topic Procedures Procedure Name Priority Date/Time Associated Diagnosis Comments HEPATITIS C ANTIBODY - ED W/REFLEX TO HCV QUANT PCR STAT 05/17/2023 8:31 PM EDT HIV 1/2 ANTIBODY/ANTIGEN SCREEN WITH REFLEX TO HIV I/II DIFFERENTIATION STAT 05/17/2023 8:31 PM EDT CYTO DATA CONVERSION Routine 12/25/1994 12:00 AM EST from Last 3 Months or Most Recently Relevant to Health Maintenance Results * HIV 1 & 2 Antibody/Antigen Screen (05/17/2023 8:31 PM EDT) Pathologist [facility] HIV 1 & 2 Antibody/Antigen Screen Non Reactive Non Reactive 05/17/2023 9:33 PM EDT [facility] Comment:Screening for HIV 1 & 2 antibodies, and P24 antigen is NONREACTIVE. No confirmatory testing is required. Blood Venous blood specimen / Unknown Venipuncture / Unknown 05/17/2023 8:31 PM EDT 05/17/2023 8:57 PM EDT Steve Cabello MD LAB BLOOD ORDERABLES Final Result Performing Organization Address [facility] Co de Phone Number [facility] [address] [place] [address] * Hepatitis C Antibody - ED (05/17/2023 8:31 PM EDT) Hepatitis C Antibody Negative Negative 05/17/2023 9:35 PM EDT [facility] Blood Venous blood specimen / Unknown Venipuncture / Unknown 05/17/2023 8:31 PM EDT 05/17/2023 8:57 PM EDT Steve Cabello MD LAB BLOOD ORDERABLES Final Result Performing Organization Address [facility] Co de Phone Number [facility] [address] [place] [address] * Cytology (12/25/1994 12:00 AM EST) 12/25/1994 12/26/1994 Narrative SUNQUEST - 12/31/1994 12:00 AM EST [facility] MR #: [id number] [facility] [address] [place], [place] [address] 1970 (Age: 24) FW Collect Date: 12/25/1994 00:00 Receipt Date: 12/26/1994 00:00 Page 1 DEPARTMENT OF PATHOLOGY AND LABORATORY MEDICINE CYTOPATHOLOGY REPORT Email: [phone] * Converted Case * This report may not match the original report format ATTENDING MD/Practitioner: Skylar Frost MD Service: ACOUSTICAL TILE DRILL PRESS OPERATOR Location: Reported: 12/31/1994 00:00 Collected: 12/25/1994 00:00 INTERPRETATION CERVICAL SCRAPE/ENDOCERVICAL BRUSH WITHIN NORMAL LIMITS. SATISFACTORY FOR INTERPRETATION. Electronically Signed Out KATY Espinoza (ASCP) Lynn García MD Cervical cytology is a screening test primarily for squamous cancers and precursors and has associated false negative and positive results. New technologies such as liquid based sampling may decrease but will not eliminate all false negative results. Regular screening and follow-up of unexplained clinical signs and symptoms are recommended to minimize false negative results. Please see the ASCCP website (www.asccp.org) for followup recommendations. If HPV testing was requested, correlation with the results is suggested (please call Microbiology at [phone] for results). CLINICAL INFORMATION: Menstrual History: {Not Provided} Date of Last Menstrual Period: {Not Provided} SPECIMEN DESCRIPTION: A: CERVICAL/VAGINAL SMEAR, PAP ICD: F: {Not Entered} SNOMED CODES: 1; [id number] In cases where a pathologist has signed out the report, the service has been rendered in part by a resident. The signing pathologist has performed and is responsible for the reported pathologic evaluation. us Historical Provider LAB PATHOLOGY ORDERABLES Fin al Result SUNQUEST from Last 3 Months or Most Recently Relevant to Health Maintenance Additional Health Concerns Infection Onset Date Last Indicated C. difficile 05/19/2023 05/19/2023 Insurance [facility] MEDIC[facility] Advance Directives * Full Code (Latest Code Status on File) Date Activated Date Inactivated Comments 05/17/2023 11:57 PM 05/22/2023 3:16 PM Question Answer Comments Patient has decision-making capacity? Yes Care Teams Student Records Specialist Relationship Specialty Start Date End Date Eneida Whittaker APRN [address] [place], [place] [id number] PCP - General 03/15/21
--- OUTSIDE RECORDS SUMMARY | 2025-10-07 19:52 | XMS_ITS | Encounter Summary ---
Author Organization Healthcare Address [address] [place] [address] Care Team Providers Care Vault Manager Name Role Phone Eneida Whittaker GARMENT FORM ASSEMBLER Primary Care Provider [phone] Reason for Visit * Reason Onset Date Comments [facility] Clinical Concern/Question 08/07/2025 Encounter Details Date Type Department Care Team (Late st Contact Info) Description 08/07/2025 Telephone [facility] [address] [facility] [address]th Floor [address] [place] [address] Ever Gray MD [address] [facility] [address] [place] [address] [facility] Clinical Concern/Question Social History Tobacco Use Types Packs/Day Years Used Date Smoking Tobacco: Former Cigarettes 1 35 1 - 08/29/2023 Passive Smoke Exposure: Past Smokeless Tobacco: Never Comments:Pt is interested in quieting tried the [...] drink first t rodrick in the morning (EYE-TOBACCO STEMMER MACHINE) to steady your nerves or to get [...] PM EDT documented as of this encounter Miscellaneous Notes * Telephone Encounter - Yin Guillaume RN - 08/10/2025 2:07 PM EDT Sent patient message via [employer] recommending compounding pharmacy or online template. Offered appointment if patient would like to be seen. * Telephone Encounter - Mary Gallardo - 08/07/2025 9:50 AM EDT Clinical Concern/Question Reason for Call: Patient is calling to see if she can get her measurements so she can reorder her compression sleeves. Please call patient back with info or email it to her at [email or web address]. thank you Best contact number: [phone] (home) Optimal time of day to reach caller: ANYTIME Additional comments/information from caller: None Note: Please do not reply to this message. Follow-up communication and further actions as a result of this message need to be communicated with the patient directly, if the patient is not active onMyChart. If the patient is active on MyChart, they will receive notification of the communication/outcome via [employer]. documented in this encounter Plan of Treatment Not on file documented as of this encounter Visit Diagnoses Not on filedocumented in this encounter Additional Health Concerns Infection Onset Date Last Indicated Resolved Time C. difficile 05/19/2023 05/19/2023 Assessment Noted Time A fall risk assessment has been complete d for the patient 09/02/2023 8:57 AM EDT A Body Mass Index follow-up plan has been documented for the patient 11/04/2023 9:43 AM EST documented as of this encounter Care Teams Vault Manager Relationship Specialty Start Date End Date Eneida Whittaker APRN [address] [place] [address] PCP - General 03/15/21 documented as of this encounter
--- NOTE | 2025-10-07 19:59 | XR_ITS ---
PROCEDURE INFORMATION: Exam: XR Chest Exam date and time: 10/07/2025 8:02 PM Age: 55 years old Clinical indication: Cough and shortness of breath; Additional info: SOB, productive cough, pneumonia? TECHNIQUE: Imaging protocol: Radiologic exam of the chest. Views: 1 view. COMPARISON: CR XR CHEST 2V 12/21/2019 10:38 AM FINDINGS: Lungs: Unremarkable. No consolidation. Pleural spaces: Unremarkable. No pleural effusion. No pneumothorax. Heart/Mediastinum: Unremarkable. No cardiomegaly. Bones/joints: Unremarkable. IMPRESSION: No acute findings.
--- NOTE | 2025-10-07 19:59 | ED_ITS ---
Discharge Plan Disposition Patient Disposition: Home, Self-Care Prescriptions Prescriptions: New benzonatate 100 mg capsule 100 mg PO TID PRN (Reason: cough) Qty: 10 0RF doxycycline hyclate 100 mg capsule 100 mg PO BID 7 Days Qty: 14 0RF No Action omeprazole 40 mg capsule,delayed release(DR/EC) 40 mg PO DAILY metoprolol succinate 25 mg tablet extended release 24 hr 25 mg PO BID Rx Instructions: Take 1 tablet by mouth twice a day albuterol sulfate [ProAir HFA] 90 mcg/actuation HFA aerosol inhaler 90 mcg INHALATION DIRECTED oxybutynin chloride 10 mg tablet extended release 24hr 10 ea PO DAILY Patient Comments: TAKE 1 TABLET BY MOUTH ONCE DAILY . APPOINTMENT REQUIRED FOR FUTURE REFILLS levothyroxine [Euthyrox] 175 mcg tablet 175 mcg PO DAILY Patient Comments: TAKE 1 TABLET BY MOUTH ONCE DAILY ON AN EMPTY STOMACH 30 MINUTES BEFORE BREAKFAST gabapentin 600 mg tablet 600 mg PO TID Patient Comments: TAKE ONE TABLET BY MOUTH THREE TIMES DAILY Rx Instructions: TAKE ONE TABLET BY MOUTH THREE TIMES DAILY dextroamphetamine sulfate 10 mg tablet 10 mg PO DAILY Patient Comments: TAKE ONE TABLET BY MOUTH DAILY around 2pm as adhd AND bed booster Rx Instructions: TAKE ONE TABLET BY MOUTH DAILY around 2pm as adhd AND bed booster lisdexamfetamine [Vyvanse] 60 mg capsule 60 mg PO DAILY Patient Comments: TAKE ONE CAPSULE BY MOUTH ONCE DAILY FOR adhd AND bed Rx Instructions: TAKE ONE CAPSULE BY MOUTH ONCE DAILY FOR adhd AND bed lamotrigine 150 mg tablet 150 mg PO DAILY Patient Comments: TAKE ONE TABLET BY MOUTH ONCE DAILY FOR mood Rx Instructions: TAKE ONE TABLET BY MOUTH ONCE DAILY FOR mood dicyclomine 10 mg capsule 10 mg PO QID PRN (Reason: abdominal pain/urgency) Qty: 60 2RF sodium,potassium,mag sulfates [Suprep Bowel Prep Kit] 17.5-3.13-1.6 gram recon soln See Rx Instructions PO .COMPLEX Qty: 354 0RF Rx Instructions: DILUTE; drink full amount early evening before AND next morning at least 4-5 hr before procedure; follow w 960 mL water PO citalopram 40 MG tablet 40 mg PO DAILY hydrochlorothiazide 25 MG tablet 25 mg PO DAILY duloxetine 60 MG capsule,delayed release(DR/EC) 60 mg PO DAILY mirabegron 25 MG tablet extended release 24 hr 25 mg PO DAILY aripiprazole 5 mg tablet 5 mg PO DAILY Rx Instructions: Take 1 tablet by mouth once a day Referrals Follow up/Referrals: Eneida Whittaker [Primary Care Provider, Medical] - See instructions Activity Restrictions/Add. Instructions Additional Instructions/Restrictions: I am prescribing antibiotics for what could be an atypical pneumonia. Take this as prescribed. You can continue to take Tylenol and ibuprofen to help with pain. To help with your cough, take the Tessalon Perles as prescribed. You can also eat a tablespoon of honey as needed if your cough gets worse. I do encourage you to follow with your primary care physician if symptoms continue. If you develop any new or worsening symptoms, or if you become concerned for your health for any reason, return to the emergency department for evaluation. Clinical Impressions Clinical Impression: Cough, Chest wall pain Print Language Print Language: Polish Discharge ED Provider: Jaden Caceres General Chief Complaint: Shortness of Breath/Dyspnea Stated Complaint: cough Time Seen by Provider: 10/07/25 19:47 History of Present Illness HPI narrative: My Candelaria is a 55y female with a history of lymphedema, hypertension, lymphedema who presents to the emergency department for complaints of cough and shortness of breath. Patient states that since Thursday (4 days ago), she has had a productive cough with green sputum, reports fevers at home of 102, chest pain only with coughing. She believes she may have pneumonia. She does report that her grandchild was recently diagnosed with COVID. Related Data Home Medications ?Medication ?Instructions ?Recorded ?Confirmed omeprazole 40 mg capsule,delayed 40 mg PO DAILY GERD 0 12/19/19 10/03/24 release citalopram 40 mg tablet 40 mg PO DAILY Depression 10/03/24 duloxetine 60 mg capsule,delayed 60 mg PO DAILY Depres fuad 10/19/20 10/03/24 release hydrochlorothiazide 25 mg tablet 25 mg PO DAILY Edema 10/19/20 10/03/24 mirabegron 25 mg tablet,extended 25 mg PO DAILY incont inence 10/19/20 10/03/24 release 24 hr albuterol sulfate 90 mcg/actuation 90 mcg inhalation A S DIRECTED 11/26/21 10/03/24 aerosol inhaler (ProAir HFA) Breathing Problems levothyroxine 175 mcg tablet 175 mcg PO DAILY 11/26/21 10/03/24 (Euthyrox) oxybutynin chloride 10 mg 10 ea PO DAILY BLADDER 11/2610/03/24 tablet,extended release 24 hr aripiprazole 5 mg tablet 5 mg PO DAILY sleep 10/03/24 10/03/24 dextroamphetamine sulfate 10 mg 10 mg PO DAILY 4 10/03/24 tablet gabapentin 600 mg tablet 600 mg PO TID 10/03/2410/03 lamotrigine 150 mg tablet 150 mg PO DAILY 10/03/2412/26 lisdexamfetamine 60 mg capsule 60 mg PO DAILY 10/03/24 10/03/24 (Vyvanse) metoprolol succinate 25 mg 25 mg PO BID High blood pre ssure 10/03/24 10/03/24 tablet,extended release 24 hr Previous Rx's ?Medication ?Instructions ?Recorded dicyclomine 10 mg capsule 10 mg PO QID PRN abdominal 1 12/04/23 pain/urgency #60 caps sodium,potassium,mag sulfates 17.5 See Rx Instructions PO .COMPLEX 11/30/24 gram-3.13 gram-1.6 gram oral soln #354 mL (Suprep Bowel Prep Kit) benzonatate 100 mg capsule 100 mg PO TID PRN cough #10 caps 10/07/25 doxycycline hyclate 100 mg capsule 100 mg PO BID 7 day s #14 caps 10/07/25 Allergies Allergy/AdvReac Type Severity Reaction Status Date / Time penicillin G Allergy Unknown UNKNOWN- Verified 10/03/24 09:29 WHEN A [facility]ILD [facility] Disclaimer: The information contained in this section may have been updated after the patient was seen, as this information can be updated by other users. Medical History Carpal tunnel syndrome SURGERY Barretts esophagus Chronic post-traumatic stress disorder (PTSD) Alcohol abuse Anxiety GERD (gastroesophageal reflux disease) HTN (hypertension) Hypothyroidism Seizures Depression Surgical History Hx of total knee arthroplasty H/O section H/O colonoscopy History of tonsillectomy and adenoidectomy S/P laparoscopic sleeve gastrectomy Family History Other CHF (congestive heart failure) Cancer Diabetes Ischemic heart disease Social History (Updated 10/03/24 @ 09:39 by Kallie Lara MA) Smoking Status: Never smoker alcohol intake: never substance use type: denies use current occupational status: unemployed and disabled Travel in the last 8 weeks?: None household members: none housing: house 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 caffeine: Yes Have you lived/traveled outside [place] in past 30 days?: No Contact w/someone who lives/traveled outside [place] past 30 days?: No Exposure to someone with infectious disease in past 14 days?: No Do you have a fever (greater than 100.4 F or 38 C)?: No Have you tested positive for COVID-19?: No Exposed to someone with COVID-19 in past 14 days?: No Do you have a sore throat?: No Do you have a cough?: Yes Do you have any weakness?: No Do you have any diarrhea?: No Are you experiencing any unusual bleeding?: No Do you have any muscle aches/pain?: No Do you have any abdominal pain?: No Are you experiencing loss of taste or smell?: No Other Medical History Have you received the Flu Vaccine for this season: Yes Have you received the Pneumonia Vaccine: No ROS Obtained: Yes Systems reviewed as appropriate & no additional complaints except as documented Physical Exam General General appearance: alert and in no apparent distress Head Head exam: atraumatic Eye Eye exam: Present normal appearance ENT ENT exam: Present normal external ear exam Neck Neck exam: Present full ROM Chest Chest inspection: Present symmetric chest wall rise Respiratory Respiratory exam: Present normal lung sounds bilaterally (Productive cough, mild crackles at the right base.); Absent respiratory distress, wheezes or stridor Cardiovascular Cardiovascular exam: Present regular rate and normal rhythm Abdominal Exam Abdominal exam: Present soft; Absent tenderness or guarding Extremities Exam Extremities exam: Present normal inspection Back Exam Back exam: Present normal inspection Neurological Exam Neurological exam: Present alert and oriented X3 Psychiatric Psychiatric exam: Present normal affect Skin Skin exam: Present warm and dry HEART Score HEART Score HEART Score assessment performed?: No Critical Care Critical Care Time Critical Care Time: No Medical Decision Making Axel Inquiry Pt receiving controlled substance: No Vital Signs Vital Signs: 10/07/25 19:57 10/07/25 19:58 10/07/25 20:00 Temperature 98.6 F Temperature Source Oral Pulse Rate 82 74 Pulse Rate [Right] 83 Respiratory Rate 21 20 19 Blood Pressure 183/99 H 166/102 H Blood Pressure [Right Arm] 166/102 H Blood Pressure Mean [Right Arm] 123 02 Sat by Pulse Oximetry 95 96 95 Oxygen Delivery Method Room Air 10/07/25 20:01 10/07/25 20:09 10/07/25 20:23 Temperature Temperature Source Pulse Rate 79 78 Pulse Rate [Right] Respiratory Rate 24 18 Blood Pressure 170/92 H 156/93 H Blood Pressure [Right Arm] Blood Pressure Mean [Right Arm] 02 Sat by Pulse Oximetry 97 97 96 Oxygen Delivery Method Room Air 10/07/25 20:31 Temperature Temperature Source Pulse Rate 74 Pulse Rate [Right] Respiratory Rate 14 Blood Pressure 162/90 H Blood Pressure [Right Arm] Blood Pressure Mean [Right Arm] 02 Sat by Pulse Oximetry 98 Oxygen Delivery Method Lab Data Labs: Lab Results 10/07/25 20:07: SARS-CoV-2 (PCR) Not detected, Influenza A Untype (PCR) Not detected, Influenza Type B (PCR) Not detected Response Orders (Tests/Meds): ED MEDICATIONS Generic Name Dose Route Start Last Admin Trade Name Freq PRN Reason Stop Dose Admin Benzonatate 100 mg 10/07/25 21:30 Benzonatate 100mg Capsule PO 11/06/25 21:29 ONCE STEFANIE Discontinued Medications Generic Name Dose Route Start Last Admin Trade Name Freq PRN Reason Stop Dose Admin Doxycycline Hyclate 100 mg 10/07/25 21:31 Doxycycline Hycl 100 Mg Tablet PO 10/07/25 21:32 ONCE ONE ORDERS Category Date Time Status CXR --portable [XR chest portable] Stat Exams 10/07/25 19:59 Completed Rapid PCR Covid and Flu A/B Stat Lab 10/07/25 20:07 Completed MDM Narrative Medical Decision Narrative: My Candelaria is a 55y female with a history of lymphedema, hypertension, lymphedema who presents to the emergency department for complaints of cough and shortness of breath. Patient states that since Thursday (4 days ago), she has had a productive cough with green sputum, reports fevers at home of 102, chest pain only with coughing. She believes she may have pneumonia. She does report that her grandchild was recently diagnosed with COVID. On arrival, patient is hypertensive but heart rate within norm limits, afebrile, breathing comfortably on room air with appropriate oxygen saturation. Physical exam, stated above, revealed nontoxic-appearing female in no significant respiratory distress. She is speaking in full sentences. She has mild crackles at the right base but is moving a good amount of air. Cardiopulmonary exam otherwise shows no murmurs or rubs. No wheezing or rhonchi. Patient does have reproducible left-sided chest pain with palpation. Physical exam is otherwise unremarkable. Patient is afebrile here but states that she took ibuprofen prior to arrival. Differential diagnosis includes, but is not limited to: Viral respiratory illness, pneumonia, pneumothorax. Low concern for ACS given patient's pain is only with coughing. Patient is PERC negative and I have low concern for DVT at this time. EKG was interpreted by me personally. Normal sinus rhythm. No ST elevation or depression. Considered obtaining lab work, however given patient is afebrile and vital signs are within normal limits, I have low concern for sepsis. Will obtain chest x- ray as well as COVID and flu swab. Chest x-ray interpreted by me personally. No focal consolidation, no pneumotho rax, no widened mediastinum, no enlargement of the cardiac silhouette. Unremarkable chest x-ray. See radiology report for details. On reassessment, patient remained hemodynamically stable. She has not been hypoxic. Patient's COVID and flu testing is negative. On reassessment, patient has remained in stable condition. I do feel that patient likely has viral bronchitis or an atypical pneumonia with possible pleurisy versus costochondritis given her reproducible chest pain. Will give dose of doxycycline and Tessalon Perle here in the emergency department. Will send 7- day course of doxycycline and Tessalon Perles at home. Encouraged her to eat honey at home if cough gets worse. Encouraged her to follow with her primary care doctor. Strict return precautions were given. All questions were answered. She demonstrated understanding and was in agreement with this plan. She was then discharged from the emergency department in stable condition peer
[2025-10-07 20:12] LABS: Coronavirus 19, PCR Not Detected (NotDetected); Influenza A, PCR Not Detected (NotDetected); Influenza B, PCR Not Detected (NotDetected)
[2025-10-07] MEDS: DOXYCYCLINE HYCL 100 MG TABLET PO (21:45)
[2025-10-07] MEDS: BENZONATATE 100MG CAPSULE 100 MG PO (21:45)
== END 2025-10-07 21:48 | disposition home or self-care (01) ==
PROVIDERS: Emergency Provider Student in an Organized Health Care Education/Training Program; PCP Nurse Practitioner Family
DX: R07.89 Other chest pain (principal); R05.1 Acute cough
CPT/HCPCS: 71045; 87636; 99283; 99285